=== PATIENT | female | born 1970 | race Caucasian/White ===

== ENCOUNTER → 2020-07-13 | Outpatient (CLI) | payer SELFPAY ==
[2020-07-13 15:25] VITALS: BMI 33.6
--- NOTE | 2020-07-13 15:40 | EMB_PTH ---
PATIENT: JACKSON MATHIS LOC: [facility] U#:[id number] AGE/SX: 50/F ROOM: RE07/13/[address]: YON Larkin : 1970 BED: DIS: 07/13/2020 SPEC #: [id number] RECD: 07/13/20 17:49 STATUS: SIMON RELenny #: [id number] MARAH: 07/13/20 15:[address]: Kasey Ramirez NP DEPT: SURGICAL PATHOLOGY RECD BY: Suzy Lau ENTERED: 07/14/20 07:33 SP TYPE: ENDOM BX/C JOSE DR: Dr. Micha Thomas DO Tissues: Endometrium, NOS Procedures: Surgery Specimen Level IV HEADER OPERATION: Endometrial biopsy PRE-OP DIAGNOSIS: Abnormal uterine bleeding TISSUE SUBMITTED: Endometrial biopsy MICROSCOPIC DIAGNOSIS Endometrium, biopsy: Weakly proliferative endometrium with recent stromal hemorrhage. No evidence of hyperplasia. AM:kaye 11/20/20 MICROSCOPIC DESCRIPTION Slides are reviewed. GROSS DESCRIPTION Received is one container labeled with the patient's name and not further designated. The specimen consists of multiple irregular and elongated fragments of dark starks soft tissue that in aggregate measure 2 x 1 x 0.1 cm. The specimen is totally submitted in one cassette. / AM:kaye 07/14/20 TC:5 CPT: 64187
[2020-07-20 13:28] LABS: HPV APTIMA, High Risk Negative (Negative)
== END | disposition home or self-care (01) ==
LOC: LABSPEC 16:26
PROVIDERS: PCP Family Medicine; Visit Provider Nurse Practitioner Women's Health
DX: Z12.4 Encounter for screening for malignant neoplasm of cervix (principal); N93.9 Abnormal uterine and vaginal bleeding, unspecified
CPT/HCPCS: 87624; 88175; 88305; G0145

== ENCOUNTER → 2020-07-25 08:57 | Outpatient (CLI) | payer SELFPAY ==
[2020-07-13 15:25] VITALS: BMI 33.6
--- NOTE | 2020-07-25 09:02 | US_ITS ---
STUDY: ULTRASOUND OF THE FEMALE PELVIS - COMPLETE REASON FOR EXAM: Female, 50 years old. AUB -- LMP 07/10/20 -- PERIMENOPAUSAL LMP: 07/10/2020. TECHNIQUE: Transabdominal and Transvaginal TECHNICAL QUALITY: Adequate. COMPARISON: None. FINDINGS: The uterus is anteverted and is in a midline position. The uterus measures 9.2 cm x 5.7 cm x 4.2 cm. Normal uterine cervix. The endometrium measures 12 mm in thickness, and is hyperechoic. There is no demonstrated endometrial mass. There is a 1.8 cm x 2.2 cm x 1.7 cm fundal fibroid. I.U.D. - The patient does not have an I.U.D. The right ovary is visualized. The right ovary measures 2.3 cm x 1.8 cm x 1.2 cm. There is no right ovarian cyst or ovarian mass. There is no visualized right adnexal mass or complex lesion. There is normal arterial and normal venous vascularity. The left ovary is visualized. The left ovary measures 2.8 cm x 1.8 cm x 1.3 cm. A dominant follicle is seen within the left ovary measuring 1.5 cm x 1.2 cm x 0.7 cm. There is no visualized left adnexal mass or complex lesion. There is normal arterial and normal venous vascularity. There is no fluid in the cul-de-sac. The pre void volume of the bladder was 616 ml. Polycystic ovary disease: No. US/Pelvic (Non ) IMPRESSION: 1.8 cm x 2.2 cm x 1.7 cm fundal fibroid. Dominant follicle in the left ovary measuring 1.5 cm x 1.2 cm x 0.7 cm. Electronically Signed: Jose Louise, at 13:43 EST , Service support ,
--- NOTE | 2020-07-25 09:02 | US_ITS ---
STUDY: ULTRASOUND OF THE FEMALE PELVIS - COMPLETE REASON FOR EXAM: Female, 50 years old. AUB -- LMP 07/10/20 -- PERIMENOPAUSAL LMP: 07/10/2020. TECHNIQUE: Transabdominal and Transvaginal TECHNICAL QUALITY: Adequate. COMPARISON: None. FINDINGS: The uterus is anteverted and is in a midline position. The uterus measures 9.2 cm x 5.7 cm x 4.2 cm. Normal uterine cervix. The endometrium measures 12 mm in thickness, and is hyperechoic. There is no demonstrated endometrial mass. There is a 1.8 cm x 2.2 cm x 1.7 cm fundal fibroid. I.U.D. - The patient does not have an I.U.D. The right ovary is visualized. The right ovary measures 2.3 cm x 1.8 cm x 1.2 cm. There is no right ovarian cyst or ovarian mass. There is no visualized right adnexal mass or complex lesion. There is normal arterial and normal venous vascularity. The left ovary is visualized. The left ovary measures 2.8 cm x 1.8 cm x 1.3 cm. A dominant follicle is seen within the left ovary measuring 1.5 cm x 1.2 cm x 0.7 cm. There is no visualized left adnexal mass or complex lesion. There is normal arterial and normal venous vascularity. There is no fluid in the cul-de-sac. The pre void volume of the bladder was 616 ml. Polycystic ovary disease: No. US/Transvaginal Non- IMPRESSION: 1.8 cm x 2.2 cm x 1.7 cm fundal fibroid. Dominant follicle in the left ovary measuring 1.5 cm x 1.2 cm x 0.7 cm. Electronically Signed: Jose Louise, at 13:43 EST , Service support ,
== END ==
PROVIDERS: PCP Family Medicine; Referring Provider Nurse Practitioner Women's Health; Visit Provider Nurse Practitioner Women's Health
DX: N93.9 Abnormal uterine and vaginal bleeding, unspecified (principal)
CPT/HCPCS: 76830; 76856

== ENCOUNTER 2024-07-06 14:07 | Emergency (ER) | payer SELFPAY ==
[2024-07-06 14:08] VITALS: BP 164/83; PULSE 80; RESP 16; TEMP 36.7; O2SAT 100
[2024-07-06 14:20] VITALS: BMI 37.7
[2024-07-06] MEDS: HYDROcodone Bitartrate/Apap 5/325 Tablet PO (14:25)
[2024-07-06 16:13] VITALS: BP 130/78; PULSE 87; RESP 16; TEMP 36.6; O2SAT 99
== END 2024-07-06 16:14 | disposition home or self-care (01) ==
PROVIDERS: Emergency Provider Emergency Medicine; PCP Family Medicine; Visit Provider Emergency Medicine
DX: S82.435A Nondisplaced oblique fracture of shaft of left fibula, initial encounter for closed fracture (principal); M25.372 Other instability, left ankle; V80.02XA Occupant of animal-drawn vehicle injured by fall from or being thrown from animal-drawn vehicle in noncollision accident, initial encounter
CPT/HCPCS: 29515; 73610; 99282; A4216

== ENCOUNTER 2024-07-16 08:49 | Day surgery (SDC) | payer SELFPAY, OTHER ==
[2024-07-16] VITALS (12 sets, daily range): BP systolic 130–149; BP diastolic 72–108; PULSE 84–93; RESP 16–18; TEMP 36–37.5; O2SAT 92–98; BMI 36.6
[2024-07-16] MEDS: Lactated Ringers 1,000 ML 15 ML IV ×2 (09:18→12:46)
--- NOTE | 2024-07-16 10:25 | PRE.ANES_ITS ---
ASA Classification* ASA Classification ASA Classification: 2 Assessment & Plan Anesthesia* Anesthesia Assessment Anesthesia Assessment: Discussed sedation and/or anesthesia options, risks, benefits, and alternatives with patient/parents/legal guardian/POA. Questions invited. The patient/parents/legal guardian/POA seems to understand and agrees to proceed with anesthesia plan. Reviewed the physical assessment, medical history, allergy history and patient home medications list prior to surgery/procedure/anesthetic and documented any changes. Performed airway and anesthesia risk assessments. Anesthesia Type Anesthesia Type: General and Block (Patient is consented for postop popliteal block.) History Source History Obtained from:: Patient and Chart Anesthesia Focused Assessment* Temperature: 98 F Pulse Rate: 93 Blood Pressure: 138/80 Respiratory Rate: 16 Pulse Ox: 98 Oxygen Delivery Method: Room Air Airway Assessment Mouth opens: >3 cm Mallampati Score: II Teeth Condition: Dentures (Patient has full upper and lower dentures.) Neck Range of motion (ROM): Limited ROM (Slight decrease in extension) Focused Labs Anesthesia Preop lab: CBC WBC 5.8 K/mm3 (4.4-11.0) 06/07/17 22:15 RBC 4.29 M/mm3 (4.2-5.4) 06/07/17 22:15 Hgb 13.9 g/dl (12.0-15.0) 06/07/17 22:15 Hct 40.7 % (37-47) 06/07/17 22:15 Plt Count 247 K/mm3 (150-450) 06/07/17 22:15 CHEMISTRY Potassium 4.2 mmol/L (3.5-5.1) 06/07/17 22:15 Sodium 141 mmol/L (136-145) 06/07/17 22:15 BUN 22 mg/dL (7-18) H 06/07/17 22:15 Creatinine 0.90 mg/dL (0.55-1.02) 06/07/17 22:15 Glucose 112 mg/dL (70-110) H 06/07/17 22:15 COAG Pre-Assessment Diagnosis/Proposed Procedure Planned Operative Procedure(s): ORIF LEFT ANKLE Anesthesia History Anesthesia History - computed tomography technician: Anesthesia History - computed tomography technician Hx Hospitalization No 07/13/24 13:11 Any Problems With Anesthesia No 07/13/24 13:11 Cholinesterase deficiency No 07/13/24 13:11 You/Your Family Experience No 07/13/24 13:11 fever (hyperthermia) with Relationship Recent Exposure to Contagious No 07/16/24 09:13 Disease Does patient have nerve No 07/13/24 13:11 stimulator Patient instructed to have device shut off --Does patient have Pacemaker No 07/16/24 09:13 or ICD? When Was Last Pacemaker Check QUESTION #4 FULL TEXT: You/Your Family Experience fever (hyperthermia) with Anesthesia Last Oral Intake Last Oral intake: Last Oral Intake NPO since 00:00 07/16/24 09:13 Meds taken in AM with sips of water? Meds patient instructed to take am of surgery PONV PONV - computed tomography technician: PONV - computed tomography technician Female Yes 07/13/24 13:11 HX of Motion Sickness No 07/13/24 13:11 HX of N/V After Surgery No 07/13/24 13:11 Non-Smoker Yes 07/13/24 13:11 Duration of Surgery greater Yes 07/13/24 13:11 than 60 minutes Number of Risk Factors 3 07/13/24 13:11 PONV Score Moderate Risk 07/13/24 13:11 Height & Weight Height & Weight: Anesthesia: Height & Weight Height 5 ft 2 in 07/16/24 09:13 Weight: 90.718 kg 07/16/24 09:13 Body Mass Index (BMI) 36.6 07/16/24 09:13 Respiratory Assessment Respiratory Assessment - computed tomography technician: Respiratory Tract Infection Hx - computed tomography technician Hx Respiratory Tract Infection No 07/13/24 13:11 STOP Sleep Apnea STOP Sleep Apnea - computed tomography technician: STOP Sleep Apnea - computed tomography technician Hx Hypertension No 07/13/24 13:11 Hx Sleep Apnea No 07/13/24 13:11 CPAP BIPAP Do you snore loudly (louder No 07/13/24 13:11 than talking or can be heard Do you often feel tired/ No 07/13/24 13:11 fatigued/ sleepy during daytime? Has anyone observed you stop No 07/13/24 13:11 breathing during sleep? STOP Results Negative 07/13/24 13:11 QUESTION #5 FULL TEXT : Do you snore loudly (louder than talking or can be heard through closed doors)? Tobacco Use History Tobacco Use History - computed tomography technician: Tobacco Use History - computed tomography technician Tobacco Use Smoking Status Never smoker 07/13/24 13:11 Hx Tobacco Use No 07/13/24 13:11 Years Smoking Packs Smoked per Day Smoking Cessation Date was within the last 15 years Hx Smoking Cessation Date Hx Smoking Cessation Counseling Hematologic Medial History Hematologic Hx - computed tomography technician: Hematologic Medical Hx - engineering documentation specialist Hx of Blood Transfusion No 07/13/24 13:11 Hx of Transfusion in last 3 No 07/13/24 13:11 Months Date of Last Transfusion (if within last 3 months) Ever experience any problems No 07/13/24 13:11 with transfusion(s)? Specify any problems Hx of Preganancy in last 3 No 07/13/24 13:11 Months Nurse Filling Out Transfusion DSCHRIBER 07/13/24 13:11 & Questions: Date: 07/13/24 07/13/24 13:11 Time: 13:13 07/13/24 13:11 Patient unable to answer at this time (ie. confused, unrespo /Reproduction History /Reproductive History - computed tomography technician: /Reproductive Hx- computed tomography technician Hx Now No 07/13/24 13:11 Gestational Age (in weeks): EDC: Hx Hx Para Hx Section SAB No 07/13/24 13:11 Active Medications Active Medications: Current Medications Generic Name Dose Route Start Last Admin Trade Name Freq PRN Reason Stop Dose Admin Lactated Ringer's 1,000 mls @ 15 mls/hr 07/16/24 09:00 07/16/24 09:18 IV 07/21/24 22:19 15 mls/hr .Q48H MARTÍN Administration Protocol PFSH Medical History Post-menopausal Wears glasses Wears dentures Walker as ambulation aid Non-smoker History of edema Home Medications ?Medication ?Instructions ?Recorded ?Last Taken ?Type NK 07/16/24 Unknown History Allergy/AdvReac Type Severity Reaction Status Date / Time No Known Allergies Allergy Verified 07/16/24 09:11 Surgical History H/O dilation and curettage Social History household members: spouse and children current occupation: [employer] history of recent travel: No sexually active: Yes Smoking Status: Never smoker alcohol intake: never substance use type: does not use diet: low carbohydrate what type of physical activity do you participate in: walking seatbelt use: always do you feel safe at home: Yes additional social history: - Miguel Review of Systems (Anesthesia) ROS Narrative System reviewed and no additional complaints, except as documented.
[2024-07-16] MEDS: Cefazolin 2 GM in Syringe IV (10:35)
--- NOTE | 2024-07-16 10:45 | RAD_ITS ---
INDICATION: ORIF LT ANKLE EXAMINATION/TECHNIQUE: X-RAY - LEFT XR Ankle 6 intraoperative Views COMPARISON: FINDINGS: Intraoperative images from an ORIF of the distal fibula.. Bony details are limited. RAD/Ankle 2 Views IMPRESSION: ORIF of the distal fibula. Electronically Signed: Niels Shell DO at 21:18 EST ,
[2024-07-16] MEDS: Bacitracin 500 UNITS/GM PACKET (12:10)
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
--- NOTE | 2024-07-16 12:58 | PCM.POST.ANE ---
Anesthesia: Postop Eval I Current Vital Signs Temperature: 97 F Pulse Rate: 89 Blood Pressure: 149/103 Respiratory Rate: 16 Pulse Ox: 92 Oxygen Delivery Method: Room Air Assessment Airway patent: Yes Spontaneous unlabored respirations: Yes Mental status: Awake and Calm nausea: No Vomiting: No Anesthesia Complication: No Fluid Hydration Crystalloid volume administer (ml): 1,100 Total IV fluid infused: 1,100 Progress Note Anesthesia document: Postop Eval 1 completed: Yes
--- NOTE | 2024-07-16 17:05 | PCM.POSTANE2 ---
Anesthesia Postop Eval I Sum Postop Eval Completion status Anesthesia document: Postop Eval 1 completed: Yes Anesthesia Postop Eval I Summary Anesthesia Postop Eval I Summary: Anesthesia Postop Eval I: Assessment Summary Airway patent Yes 07/16/24 12:59 ACCOUNT INSTALLATION SPECIALIST.MDOT Spontaneous unlabored Yes 07/16/24 12:59 ACCOUNT INSTALLATION SPECIALIST.MDOT respirations Mental status Awake,Calm 07/16/24 12:59 ACCOUNT INSTALLATION SPECIALIST.MDOT nausea No 07/16/24 12:59 ACCOUNT INSTALLATION SPECIALIST.MDOT Vomiting No 07/16/24 12:59 ACCOUNT INSTALLATION SPECIALIST.MDOT Anesthesia Postop Eval I: Fluid Summary Crystalloid volume administer 1,100 07/16/24 12:59 ACCOUNT INSTALLATION SPECIALIST.MDOT (ml) Colloids volume administered ( ml) Blood Product volume administered (ml) Total IV fluid infused 1,100 07/16/24 12:59 ACCOUNT INSTALLATION SPECIALIST.MDOT Anesthesia Postop Eval I: Summary Notes Anesthesia Complication No 07/16/24 12:59 ACCOUNT INSTALLATION SPECIALIST.MDOT Anesthesia Complication Comment: Post-operative progress note Anesthesia: Postop Eval II Evaluation Mental status: Awake and Calm Pain Level: 1 nausea: No Vomiting: No Complications Anesthesia Complication: No
--- NOTE | 2024-07-16 17:05 | POSTOPAN2_ITS ---
Anesthesia Postop Eval I Sum Postop Eval Completion status Anesthesia document: Postop Eval 1 completed: Yes Anesthesia Postop Eval I Summary Anesthesia Postop Eval I Summary: Anesthesia Postop Eval I: Assessment Summary Airway patent Yes 07/16/24 12:59 PAPER [place]E MACHINE TENDER.MDOT Spontaneous unlabored Yes 07/16/24 12:59 PAPER [employer]E MACHINE TENDER.MDOT respirations Mental status Awake,Calm 07/16/24 12:59 PAPER [employer]E MACHINE TENDER.MDOT nausea No 07/16/24 12:59 PAPER CONE MACHINE TENDER.MDOT Vomiting No 07/16/24 12:59 PAPER CONE MACHINE TENDER.MDOT Anesthesia Postop Eval I: Fluid Summary Crystalloid volume administer 1,100 07/16/24 12:59 PAPER CONE MACHINE TENDER.MDOT (ml) Colloids volume administered ( ml) Blood Product volume administered (ml) Total IV fluid infused 1,100 07/16/24 12:59 PAPER CONE MACHINE TENDER.MDOT Anesthesia Postop Eval I: Summary Notes Anesthesia Complication No 07/16/24 12:59 PAPER CONE MACHINE TENDER.MDOT Anesthesia Complication Comment: Post-operative progress note Anesthesia: Postop Eval II Evaluation Mental status: Awake and Calm Pain Level: 1 nausea: No Vomiting: No Complications Anesthesia Complication: No
== END 2024-07-16 15:36 | disposition home or self-care (01) ==
LOC: SDC 08:53 → AC 08:55
PROVIDERS: PCP Family Medicine; Referring Provider Podiatrist; Visit Provider Podiatrist
PROC: (CPT 27792; principal; 2024-07-16 09:55)
DX: S82.62XA Displaced fracture of lateral malleolus of left fibula, initial encounter for closed fracture (principal); S93.432A Sprain of tibiofibular ligament of left ankle, initial encounter; V80.929A Occupant of animal-drawn vehicle injured in unspecified transport accident, initial encounter
CPT/HCPCS: 27792; 27829; 64450; 73600; 76000; C1713; J7120; J2405

== ENCOUNTER → 2024-09-16 | Outpatient (CLI) | payer SELFPAY ==
--- NOTE | 2024-09-16 | EMB_PTH ---
PATIENT: JACKSON MATHIS LOC: [facility]#:[id number] AGE/SX: 54/F ROOM: RE09/16/[address]: YON Larkin : 1970 BED: DIS: 09/16/2024 SPEC #: [id number] RECD: 09/16/24 13:19 STATUS: SIMON RELenny #: [id number] MARAH: 09/16/24 00:[address]: Kasey Ramirez NP DEPT: SURGICAL PATHOLOGY RECD BY: Vinny Lynch ENTERED: 09/16/24 13:20 SP TYPE: ENDOM BX/C JOSE DR: Dr. Micha Thomas DO Tissues: Endometrium, NOS Procedures: Surgery Specimen Level IV HEADER OPERATION: Endometrial biopsy PRE-OP DIAGNOSIS: Post menopausal bleeding TISSUE SUBMITTED: Endometrial lining MICROSCOPIC DIAGNOSIS Endometrial biopsy: Disordered proliferative endometrium. See comment. Vernon 09/17/2024 COMMENT Clinical correlation and appropriate follow up are necessary. MICROSCOPIC DESCRIPTION Slides are reviewed. GROSS DESCRIPTION Received is one container labeled with the patient's name and not further designated. The specimen consists of multiple irregular fragments of hemorrhagic soft tissue mixed with mucoid tissue that in aggregate measure 3 x 2.5 x 0.3 cm. The specimen is totally submitted in one cassette. 09/16/2024 TC:5 CPT:[id number]
[2024-09-18 10:08] LABS: HPV APTIMA, High Risk Negative (Negative)
== END | disposition home or self-care (01) ==
LOC: LABSPEC 10:32
PROVIDERS: PCP Family Medicine; Referring Provider Nurse Practitioner Women's Health; Visit Provider Nurse Practitioner Women's Health
DX: Z12.4 Encounter for screening for malignant neoplasm of cervix (principal); N95.0 Postmenopausal bleeding; R87.610 Atypical squamous cells of undetermined significance on cytologic smear of cervix (ASC-US)
CPT/HCPCS: 87624; 88175; 88305; G0145

== ENCOUNTER → 2024-09-23 | Outpatient (CLI) | payer SELFPAY ==
--- NOTE | 2024-09-23 16:44 | US_ITS ---
PROCEDURE: PELVIC W/ TRANSVAGINAL REASON FOR EXAM: Postmenopausal bleeding. TECHNIQUE: Transabdominal and transvaginal pelvic ultrasound COMPARISON: Comparison is made with prior study dated July 25, 2020. FINDINGS: Measurements: Uterus: 7.9 cm x 6 cm x 4.6 cm. Endometrial Thickness: The endometrium is thickened and measures 2 cm. It is hyperechoic. Endo myometrial mass should be ruled out. Right Ovary: Not visualized. Left Ovary: Not visualized. TRANSABDOMINAL: Uterus: Normal size, myometrial echotexture, and contour. Endometrium: Endometrial thickening as described. Endometrial mass should be ruled out. Right ovary: Not visualized Left ovary: Not visualized No large pelvic mass identified. Transvaginal sonography was performed to better visualize the endometrium. TRANSVAGINAL: Uterus: Anteverted. Normal contour and myometrial echotexture. Endometrium: Endometrial thickening measuring 2 cm. Endoluminal mass should be ruled out. Right ovary: Nonvisualized. Left ovary: Nonvisualized. Other adnexal findings: None. Cul-de-sac: No free intraperitoneal fluid identified. No tenderness. US/Pelvic w/ Transvaginal IMPRESSION: Endometrial thickening. Endometrial mass should be ruled out. Clinical correl ation recommended. Reading Location: [facility]
== END | disposition home or self-care (01) ==
LOC: US 16:43
PROVIDERS: PCP Family Medicine; Referring Provider Nurse Practitioner Women's Health; Visit Provider Nurse Practitioner Women's Health
DX: N95.0 Postmenopausal bleeding (principal)
CPT/HCPCS: 76830; 76856

== ENCOUNTER 2024-11-24 09:53 | Day surgery (SDC) | payer SELFPAY, OTHER ==
[2024-11-24] VITALS (8 sets, daily range): BP systolic 131–147; BP diastolic 76–87; PULSE 70–83; RESP 16; TEMP 36.5–36.6; O2SAT 98–100; BMI 37.8
--- NOTE | 2024-11-24 | EMB_PTH ---
PATIENT: JACKSON MATHIS [place] [facility] [id number] AGE/SX: 54/F ROOM: RE11/24/[address]: Dr. Kimberly Bonner MD : 1970 BED: DIS: 11/24/2024 SPEC #: [id number] RECD: 11/24/24 14:12 STATUS: SIMON KENNY #: [id number] MARAH: 11/24/24 00:[address]: Kimberly Bonner DEPT: SURGICAL PATHOLOGY RECD BY: Vinny Lynch ENTERED: 11/24/24 14:12 SP TYPE: ENDOM BX/C JOSE DR: Dr. Micha Thomas DO Tissues: Endometrium, NOS Procedures: Surgery Specimen Level IV HEADER OPERATION: Hysteroscopic myomectomy, D&C PRE-OP DIAGNOSIS: Postmenopausal bleeding TISSUE SUBMITTED: A- Endometrial curettings MICROSCOPIC DIAGNOSIS A. Endometrium, Hysteroscopic Myomectomy and Dilation & Curettage: * Fragments of smooth muscle suggestive of leiomyoma. * Fragments of endometrium with cystic atrophy. * Polypoid fragment of endometrium with disordered proliferation. MICROSCOPIC DESCRIPTION Slides are reviewed. GROSS DESCRIPTION A. Received in formalin in a container labeled with the patient's name, date of , and endometrial curettings are multiple starks-pink fragments of soft tissue admixed with a small amount of blood and mucus measuring 2.5 x 2.0 x 0.8 cm in aggregate. Submitted in toto in A1-2. [facility] 11-24-2024 CPT:[id number]
--- NOTE | 2024-11-24 09:52 | HP.PCM_ITS ---
History and Physical Date of Admission: 11/24/24 Intake Vital Signs 09/16/2507:13 09/28/2508:43 11/02/2509:43 Height 5 ft 2 in 5 ft 2 in 5 ft 2 in Weight: 209 lb 2 oz BMI 38.2 BP 135/78 H Intake Visit Reasons: hysteroscopy D&C Consult Pediatric Cardiologist Required: No Is patient in pain?: No Allergies No Known Allergies Allergy (Verified 11/02/24 10:44) Medications ?Medication ?Instructions ?Recorded ?Confirmed ?Type acetaminophen 500 mg capsule 500 mg PO Q6H PRN fever or pain 07/16/24 11/02/24 Rx #30 caps ibuprofen 800 mg tablet 800 mg PO Q8H PRN pain #30 tabs 07/16/24 11/02/24 Rx Is last menstrual period known: No Patient : No : No PFSH Medical History Post-menopausal Wears glasses Wears dentures Walker as ambulation aid Non-smoker History of edema Surgical History H/O dilation and curettage Social History (Updated 11/02/24 @ 10:45 by Kasey John) household members: spouse and children number of children: 8 current occupation: [employer] history of recent travel: No sexually active: Yes Smoking Status: Never smoker alcohol intake: never substance use type: does not use diet: low carbohydrate what type of physical activity do you participate in: walking seatbelt use: always do you feel safe at home: Yes additional social history: - Miguel [facility] hysteroscopy D&C Consult Details: JACKSON MATHIS is a 54 year old who presents for a 2 week long bleeding episode. she went through menopause at age 49, and she had bleeding vaignally not much but enough to see for a few weeks. s he had an US that showed a thickened lining 2 cm and had an EMB that showed proliferative lining. she denies any crmaping or pain now, no fevers Female Reproductive History Menopausal Symptoms: No night sweats History 11 Elective abortions Hx Para 8 Spontaneous abortions Hx # Term Pregnancies Ectopic pregnancies Hx # Pregnancies Multiple births # of living children 8 Past Pregnancies Del. Date Name GA/Weeks Outcome Route Bth Weight Gen Labor Lgth Anesthesia Del Locatn Provider FOB Unknown Dayami 1988 Unknown Neel 1989 Unknown Gómez 1990 Unknown Veronica 1992 Unknown Fer 1994 Unknown Jorge 1996 Unknown Kendra 1999 Unknown Shirley 2001 ROS Const Constitutional: Denies fatigue, night sweats, weight gain or weight loss ENT ENT: Reports system reviewed and no additional complaints, except as documented Cardio Card: Denies chest pain Resp Resp: Denies cough or dyspnea GI GI: Reports as per HPI; Denies abdominal pain, constipation, nausea or vomiting : Denies nipple discharge, urinary frequency, urinary incontinence, urinary hesitancy, urinary urgency, vaginal discharge, vaginal dryness, vaginal odor or vaginal pruritus Musc Musc: Denies arthralgias, back pain or muscle weakness Skin Skin/Breast: Denies alopecia, change in hair, dry skin, breast mass, breast pain, breast skin changes or nipple discharge Neuro Neuro: Reports system reviewed and no additional complaints, except as documented Psych Psych: Reports system reviewed and no additional complaints, except as documented Endo Endo: Denies cold intolerance, excessive sweating, heat intolerance or polydipsia Sav/Lymph Hematologic/Lymphatic: Denies easy bleeding, Denies easy bruising and Denies lymphadenopathy Exam Const General: cooperative, healthy appearing, comfortable and no acute distress Orientation: alert [facility] Head: normal to inspection and normocephalic Ears: hearing grossly normal bilaterally and external ears normal Nose: external nose normal and nares normal Face and sinus: normal facial exam Neck Neck: normal visual inspection and no lymphadenopathy Thyroid: thyroid normal Chest Chest palpation & inspection: normal inspection of the chest Resp Effort & Inspection: normal respiratory effort Auscultation: clear to auscultation bilaterally Cardio Rate: regular rate Rhythm: regular rhythm Heart Sounds: S1 normal and S2 normal GI Inspection: normal to inspection and non-distended Palpation: soft and no hepatosplenomegaly Musc Other: gross motor intact no deficits, full bilateral strength Skin General: no rashes or lesions noted Neuro General: patient alert, patient awake, moves all extremities and no focal motor deficits Motor: muscle tone normal throughout Extrem General: normal to inspection and no pedal edema Psych Appearance: grossly normal Mental Status: mental status grossly normal Affect: normal affect Speech and Movement: speech and movement normal Coding Level of Care Code No Charge Diagnoses Postmenopausal bleeding N95.0 Assessment and Plan Assessment and Plan (1) Postmenopausal bleeding: Status: Acute Comment: proliferative EMB, recommend D and C hysteroscopy possible symphion for 2 cm lining Plan After discussing the patient's diagnosis and treatment plan options, patient wishes to proceed with surgical management. I have discussed with the patient the risks, benefits, and alternatives of the procedure which include but are not limited to risks of anesthesia, bleeding, infection, possible damage to bowel, bladder, or surrounding vasculature which could lead to additional surgery to evaluate any complications. Patient agrees to procedure and wishes to proceed. ACOG/uptodate references given for additional information regarding procedure. UPDATE- I have seen the patient and performed any clinically relevant updates to the history and physical exam. Kimberly Bonner MD
--- NOTE | 2024-11-24 10:32 | PCM.PRE.AN2 ---
ASA Classification* ASA Classification ASA Classification: 2 Assessment & Plan Anesthesia* Anesthesia Assessment Anesthesia Assessment: Discussed sedation and/or anesthesia options, risks, benefits, and alternatives with patient/parents/legal guardian/POA. Questions invited. The patient/parents/legal guardian/POA seems to understand and agrees to proceed with anesthesia plan. Reviewed the physical assessment, medical history, allergy history and patient home medications list prior to surgery/procedure/anesthetic and documented any changes. Performed airway and anesthesia risk assessments. Anesthesia Type Anesthesia Type: MAC History Source History Obtained from:: Patient and Chart Anesthesia Focused Assessment* Temperature: 97.8 F Pulse Rate: 70 Blood Pressure: 147/83 Respiratory Rate: 16 Pulse Ox: 100 Oxygen Delivery Method: Room Air Airway Assessment Mouth opens: >3 cm Mallampati Score: IV Teeth Condition: Dentures (Patient has full dentures top and bottom.) Neck Range of motion (ROM): Full ROM Focused Labs Anesthesia Preop lab: CBC WBC 5.8 K/mm3 (4.4-11.0) 06/07/17 22:15 06/07/17 RBC 4.29 M/mm3 (4.2-5.4) 06/07/17 22:15 06/07/17 Hgb 13.9 g/dl (12.0-15.0) 06/07/17 22:15 06/07/17 Hct 40.7 % (37-47) 06/07/17 22:15 06/07/17 Plt Count 247 K/mm3 (150-450) 06/07/17 22:15 06/07/17 CHEMISTRY Potassium 4.2 mmol/L (3.5-5.1) 06/07/17 22:15 06/07/17 Sodium 141 mmol/L (136-145) 06/07/17 22:15 06/07/17 BUN 22 mg/dL (7-18) H 06/07/17 22:15 06/07/17 Creatinine 0.90 mg/dL (0.55-1.02) 06/07/17 22:15 06/07/17 Glucose 112 mg/dL (70-110) H 06/07/17 22:15 06/07/17 COAG Tst Clinic Negative 09/16/24 08:17 09/16/24 Pre-Assessment Diagnosis/Proposed Procedure Planned Operative Procedure(s): HYSTEROSCOPY D&C Anesthesia History 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 When Was Last Pacemaker Check QUESTION #4 FULL TEXT: You/Your Family Experience fever (hyperthermia) with Anesthesia Last Oral Intake Last Oral intake: Last Oral Intake NPO since 18:00 11/24/24 10:14 Meds taken in AM with sips of No 11/24/24 10:14 water? Meds patient instructed to take am of surgery PONV PONV - door furring installer: PONV - door furring installer Female Yes 11/12/24 12:49 HX of Motion Sickness No 11/12/24 12:49 HX of N/V After Surgery No 11/12/24 12:49 Non-Smoker Yes 11/12/24 12:49 Duration of Surgery greater No 11/12/24 12:49 than 60 minutes Number of Risk Factors 2 11/12/24 12:49 PONV Score Moderate Risk 11/12/24 12:49 Height & Weight Height & Weight: Anesthesia: Height & Weight Height 5 ft 2 in 11/24/24 10:14 Weight: 93.894 kg 11/24/24 10:14 Body Mass Index (BMI) 37.8 11/24/24 10:14 Respiratory Assessment Respiratory Assessment - door furring installer: Respiratory Tract Infection Hx - door furring installer Hx Respiratory Tract Infection No 11/12/24 12:49 STOP Sleep Apnea STOP Sleep Apnea - door furring installer: STOP Sleep Apnea - door furring installer Hx Hypertension No 11/12/24 12:49 Hx Sleep Apnea No 11/12/24 12:49 CPAP BIPAP Do you snore loudly (louder No 11/12/24 12:49 than talking or can be heard Do you often feel tired/ No 11/12/24 12:49 fatigued/ sleepy during daytime? Has anyone observed you stop No 11/12/24 12:49 breathing during sleep? STOP Results Negative 11/12/24 12:49 QUESTION #5 FULL TEXT : Do you snore loudly (louder than talking or can be heard through closed doors)? 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 Specify any problems Hx of Preganancy in last 3 No 11/12/24 12:49 Months Nurse Filling Out Transfusion DSCHRIBER 11/12/24 12:49 & Questions: Date: 11/12/24 11/12/24 12:49 Time: 12:50 11/12/24 12:49 Patient unable to answer at this time (ie. confused, unrespo /Reproduction History /Reproductive History - door furring installer: /Reproductive Hx- door furring installer Hx Now No 11/12/24 12:49 Gestational Age (in weeks): EDC: Hx Hx Para Hx Section SAB No 11/12/24 12:49 PFSH Medical History Hx of fracture of ankle Post-menopausal Wears glasses Wears dentures Non-smoker Home Medications ?Medication ?Instructions ?Recorded ?Last Taken ?Type acetaminophen 500 mg capsule 500 mg PO Q6H PRN fever or pain 07/16/24 Unknown Rx #30 caps ibuprofen 800 mg tablet 800 mg PO Q8H PRN pain #30 tabs 07/16/24 Unknown Rx Allergy/AdvReac Type Severity Reaction Status Date / Time No Known Allergies Allergy Verified 11/24/24 10:11 Surgical History H/O dilation and curettage Social History household members: spouse and children number of children: 8 current occupation: [employer] history of recent travel: No sexually active: Yes Smoking Status: Never smoker alcohol intake: never substance use type: does not use diet: low carbohydrate what type of physical activity do you participate in: walking seatbelt use: always do you feel safe at home: Yes additional social history: - Miguel Review of Systems (Anesthesia) ROS Narrative System reviewed and no additional complaints, except as documented.
[2024-11-24 10:40] LABS: Hemoglobin 14.5 g/dL (12.0-15.0); Mean Corp Hgb Conc 35.4 g/dL (32-36); Mean Corpuscular Hgb 32.2 pg (27.0-32.0); Mean Corpuscular Volume 90.9 fL (81-99); Mean Platelet Vol. 9.5 fl (6.2-12.0); Platelet Count 276 K/mm3 (150-450); RBC Distribution Width CV 12.4 % (11.6-14.6); RBC Distribution Width SD 40.8 fl (35.1-43.9); Red Blood Count 4.51 M/mm3 (4.2-5.4); White Blood Count 4.3 K/mm3 (4.4-11.0)
--- NOTE | 2024-11-24 11:29 | PCM.OPRPT ---
Problems Associated Problem List Diagnoses (1) Postmenopausal bleeding: Multi Select Codes Urinary/Genital Urinary/Genital CPT Codes: 86112 Hysteroscopy,EMC, Polypectomy Operative Report (Standard) Operative Information Date of Procedure: 11/24/24 Pre-Operative Diagnosis: see problem list comments Post-Operative Diagnosis: same Surgery/Procedure Performed: dilation and curettage hysteroscopy human resources psychologist: No Type of Anesthesia: IV Sedation and Local RN Documented Start/Stop Times: Operation Date: 11/24/24 12:00 Case Time Into Pre-Op 11/24/24 09:57 Out of Pre-Op 11/24/24 11:18 Select all DRAINS/GRAFTS/IMPLANTS that apply: None Estimated Blood Loss: 25 Specimen collected: Yes Description of surgery: Patient was prepped and draped in a normal sterile fashion under MAC anesthesia. A weighted speculum was placed in the vagina and the anterior lip of the cervix was grasped with a single-tooth tenaculum. A paracervical block was placed with 1% lidocaine. Cervix was progressively dilated to allow passage of a 7 mm hysteroscope. The lining was fully visualized and noted to have[ ] . Uterine sounded to [ ] cm. Curettage was performed and [ ] , sent to pathology. All instruments were removed from the vagina and excellent hemostasis was noted. Patient was awoken and taken to recovery in stable condition. Surgical Findings: thickened endometrial lining Complications Complications: No
[2024-11-24] MEDS: Lidocaine 1% (30 ml sdv) 30 ML Vial (11:39)
[2024-11-24] MEDS: TRANEXAMIC ACID 1,000 MG in 0.9% Normal Saline (100mL Bag) 100 ML 440 MG IV (12:02)
--- NOTE | 2024-11-24 12:08 | PCM.OPRPT ---
Problems Associated Problem List Diagnoses (1) Postmenopausal bleeding: (2) Fibroid: (3) Status post hysteroscopic myomectomy: Multi Select Codes Urinary/Genital Urinary/Genital CPT Codes: 31544 Hysteroscopic myomectomy Operative Report (Standard) Operative Information Date of Procedure: 11/24/24 Pre-Operative Diagnosis: see problem list details Post-Operative Diagnosis: same Surgery/Procedure Performed: dilation and curettage hysteroscopic myomectomy using symphion mine administrator supervisor: No Type of Anesthesia: IV Sedation RN Documented Start/Stop Times: Operation Date: 11/24/24 12:00 Case Time Into Pre-Op 11/24/24 09:57 Out of Pre-Op 11/24/24 11:18 Anesthesia Start 11/24/24 11:21 Into Room 11/24/24 11:21 Procedure Start 11/24/24 11:37 Procedure Start Time: 11:37 Procedure Stop Time: 12:05 Select all DRAINS/GRAFTS/IMPLANTS that apply: None Estimated Blood Loss: 50 Specimen collected: Yes Description of specimen(s) removed: endometrial curretings and fibroid Description of surgery: Patient was prepped and draped in a normal sterile fashion under MAC anesthesia. A weighted speculum was placed in the vagina and the anterior lip of the cervix was grasped with a single-tooth tenaculum. A paracervical block was placed with 1% lidocaine. Cervix was progressively dilated to allow passage of a 5 mm hysteroscope. The lining was fully visualized and noted to have an anterior fibroid . Uterine sounded to 7-8 cm. Using the symphion device, the fibroid was progressively removed without complications, cautery used to obtian hemoastasis and TXA and floseal used for hemastasis. Direct visual curettage was performed using the device , and all specimens were sent to pathology. All instruments were removed from the vagina and excellent hemostasis was noted. Patient was awoken and taken to recovery in stable condition. Surgical Findings: anterior fundal fibroid Complications Complications: No
--- NOTE | 2024-11-24 12:11 | PCM.DC ---
Discharge Instructions Diet Discharge Diet: No restrictions DC O2, CPAP, BIPAP needs Home O2 Discharge instructions: No Dressing / Incision Discharge Activity: Return to Normal Activity, May Shower and May Take a Tub Bath (after 1 week) May resume sexual activity in: 1-2 weeks Weight Bearing Status: Weight bearing as tolerated Lifting Restrictions: none Dressing / Incision Call your doctor if you observe: Fever of 101 or Higher, Using more than 1 pad per hour, Shortness of breath and Uncontrolled pain Follow Up Care Please Follow Up With: Kimberly Bonner MD When: Call [phone] to schedule appointment. Test Results: Test results from this visit will be discussed in further detail at your follow-up appointment, if applicable. Discharge Plan Admission Attending Provider: Kimberly Bonner Primary Care Provider: Micha Thmoas Instructions Print Language: Bulgarian Discharge Orders/Prescriptions Prescriptions: No Action ibuprofen 800 mg tablet 800 mg PO Q8H PRN (Reason: pain) Qty: 30 0RF acetaminophen 500 mg capsule 500 mg PO Q6H PRN (Reason: fever or pain) Qty: 30 0RF Referrals / Follow Up: Micha Thomas DO [Primary Care Provider] - Disposition Disposition (needs filled in before D/C Order can be placed): Home, Self Care
--- NOTE | 2024-11-24 12:18 | PCM.POST.ANE ---
Anesthesia: Postop Eval I Current Vital Signs Temperature: 97.7 F Pulse Rate: 83 Blood Pressure: 131/81 Respiratory Rate: 16 Pulse Ox: 98 Oxygen Delivery Method: Room Air Assessment Airway patent: Yes Spontaneous unlabored respirations: Yes Mental status: Awake and Calm nausea: No Vomiting: No Anesthesia Complication: No Fluid Hydration Crystalloid volume administer (ml): 110 Total IV fluid infused: 110 Progress Note Anesthesia document: Postop Eval 1 completed: Yes
[2024-11-24] MEDS: HYDROcodone Bitartrate/Apap 5/325 Tablet PO (13:19)
--- NOTE | 2024-11-24 13:43 | POSTOPAN2_ITS ---
Anesthesia Postop Eval I Sum Postop Eval Completion status Anesthesia document: Postop Eval 1 completed: Yes Anesthesia Postop Eval I Summary Anesthesia Postop Eval I Summary: Anesthesia Postop Eval I: Assessment Summary Airway patent Yes 11/24/24 12:19 AREA FIELD [email or web address].[email or web address] Spontaneous unlabored Yes 11/24/24 12:19 AREA FIELD PERSON.GDOTT respirations Mental status Awake,Calm 11/24/24 12:19 AREA FIELD PERSON.GDOTT nausea No 11/24/24 12:19 AREA FIELD PERSON.GDOTT Vomiting No 11/24/24 12:19 AREA FIELD PERSON.GDOTT Anesthesia Postop Eval I: Fluid Summary Crystalloid volume administer 110 11/24/24 12:19 AREA FIELD PERSON.GDOTT (ml) Colloids volume administered ( ml) Blood Product volume administered (ml) Total IV fluid infused 110 11/24/24 12:19 AREA FIELD PERSON.GDOTT Anesthesia Postop Eval I: Summary Notes Anesthesia Complication No 11/24/24 12:19 AREA FIELD PERSON.GDOTT Anesthesia Complication Comment: Post-operative progress note Anesthesia: Postop Eval II Evaluation Mental status: Awake and Calm Pain Level: 0 nausea: No Vomiting: No Complications Anesthesia Complication: No
--- NOTE | 2024-11-24 13:43 | PCM.POSTANE2 ---
Anesthesia Postop Eval I Sum Postop Eval Completion status Anesthesia document: Postop Eval 1 completed: Yes Anesthesia Postop Eval I Summary Anesthesia Postop Eval I Summary: Anesthesia Postop Eval I: Assessment Summary Airway patent Yes 11/24/24 12:19 TALENT DEVELOPMENT SPECIALIST.GDOTT Spontaneous unlabored Yes 11/24/24 12:19 TALENT DEVELOPMENT SPECIALIST.GDOTT respirations Mental status Awake,Calm 11/24/24 12:19 TALENT DEVELOPMENT SPECIALIST.GDOTT nausea No 11/24/24 12:19 TALENT DEVELOPMENT SPECIALIST.GDOTT Vomiting No 11/24/24 12:19 TALENT DEVELOPMENT SPECIALIST.GDOTT Anesthesia Postop Eval I: Fluid Summary Crystalloid volume administer 110 11/24/24 12:19 TALENT DEVELOPMENT SPECIALIST.GDOTT (ml) Colloids volume administered ( ml) Blood Product volume administered (ml) Total IV fluid infused 110 11/24/24 12:19 TALENT DEVELOPMENT SPECIALIST.GDOTT Anesthesia Postop Eval I: Summary Notes Anesthesia Complication No 11/24/24 12:19 TALENT DEVELOPMENT SPECIALIST.GDOTT Anesthesia Complication Comment: Post-operative progress note Anesthesia: Postop Eval II Evaluation Mental status: Awake and Calm Pain Level: 0 nausea: No Vomiting: No Complications Anesthesia Complication: No
== END 2024-11-24 14:12 | disposition home or self-care (01) ==
LOC: SDC 09:54 → AC 09:57
PROVIDERS: PCP Family Medicine; Referring Provider Obstetrics & Gynecology; Visit Provider Obstetrics & Gynecology
PROC: 0UB98ZZ Excision of Uterus, Via Natural or Artificial Opening Endoscopic (ICD-10-PCS; CPT 58558; principal; 2024-11-24 11:45)
DX: N95.0 Postmenopausal bleeding (principal); D25.1 Intramural leiomyoma of uterus; N85.8 Other specified noninflammatory disorders of uterus
CPT/HCPCS: 58561; 00952; 85027; 86850; 86900; 86901; 88305; J2405